=== PATIENT | female | born 1960 | race Caucasian/White ===

== ENCOUNTER 2017-04-24 20:39 | Observation (INO) | payer BC ==
[~2017-04-24] VITALS: Ht 167.6 cm; Wt 100.0 kg
[2017-04-24] MEDS ORDERED: ALUMINUM/MAGNESIUM SUSP 30 ML UDC PO STA (20:54)
[2017-04-24] MEDS ORDERED: ONDANSETRON INJ 2 MG/ML 2 ML VIAL IV STA (20:54)
[2017-04-24] MEDS ORDERED: SODIUM CHLORIDE 0.9% 1000ML 1,000 ML IV STA (20:54)
[2017-04-24] MEDS ORDERED: ASPIRIN 81 MG CHEW PO STA (21:02)
[2017-04-24 21:04] LABS: BASO % 0.6 %; BASO ABS # 0.04 K/uL (0-0.2); COMPLETE YES; EOS % 0.6 %; IG% 0.3 %; LYMPH % 18.7 %; LYMPH ABS # 1.35 K/uL (1.2-3.4); MEAN CELL VOLUME 82.4 fL (80-100); MEAN CORPUSCULAR HEMOGLOBIN 27.5 pg (25-34); MEAN CORPUSCULAR HGB CONC 33.3 g/dl (32-36); MEAN PLATELET VOLUME 10.7 fL (7.4-10.4); MONO % 4.9 %; NEUT % 74.9 %; PLATELET COUNT 333 K/uL (130-400); RED BLOOD COUNT 5.46 M/uL (4.2-5.4); WHITE BLOOD COUNT 7.21 K/uL (4.8-10.8)
--- NOTE | 2017-04-24 21:15 | EMERGENCY ROOM VISIT NOTE ---
History Report prepared by Alessiaibagustina: Elzbieta Jean Under the Supervision of: Dr. Cruz Aguilar D.O. First contact with patient: 20:46 Chief Complaint: CARDIAC ASSESSMENT Stated Complaint: FULLNESS IN CHEST AND VOMITTING History of Present Illness The patient is a 57 year old female who presents to the Emergency Room with complaints of intermittent chest discomfort for the past day. She reports "I feel like something is stuck in my middle" and rates her discomfort as an 8/10 in severity. This morning she woke up around 0500 and thought she had a migraine headache. She took 2 Excedrin, but states it provided no relief. She has also been nauseous and vomiting throughout the day. She denies any shortness of breath. She admits to a history of diverticulitis and states she is worried she might be having a flare due to some current abdominal pain. She did try taking a Zantac for her chest and abdominal pain, but states it provided minimal relief. The patient states she has never undergone a stress test or cardiac catheterization before. She no longer has her gallbladder but still has her appendix. Source of History: patient Onset: Past 1 day Position: chest Symptom Intensity: 8/10 Timing: intermittent Modifying Factors (Relieving): other (Xantac) Associated Symptoms: + headache, + nausea, + vomiting, + abdominal pain, No SOB Review of Systems See HPI for pertinent positives & negatives. A total of 10 systems reviewed and were otherwise negative. Past Medical & Surgical Medical Problems: (1) Diverticulitis (2) Diverticulosis Surgical Problems: (1) S/P cervical spinal fusion (2) S/P cholecystectomy Social History Smoking Status: Never Smoker Smokeless Tobacco Use: No Alcohol Use: occasionally Drug Use: none Marital Status: Housing Status: lives with family Occupation Status: employed Current/Historical Medications No Active Prescriptions or Reported Meds Allergies Coded Allergies: Oxycodone (Verified Adverse Reaction, Intermediate, "sick to stomach", 09/23) Physical Exam Vital Signs Date Time Temp Pulse Resp B/P (MAP) Pulse Ox O2 Delivery O2 Flow Rate FiO2 04/24/17 22:01 68 18 138/88 95 Room Air 04/24/17 21:09 71 04/24/17 20:51 97 Room Air 04/24/17 20:42 36.8 69 18 139/87 92 Room Air Physical Exam GENERAL: Patient is awake, alert, mildly anxious appearing, in no acute distress, patient is resting comfortably EYES: The conjunctivae are clear. The pupils are round and reactive. EARS, NOSE, MOUTH AND THROAT: The nose is without any evidence of any deformity. Mucous membranes are moist tongue is midline NECK: The neck is nontender and supple. RESPIRATORY: Normal respiratory effort is noted there is no evidence of wheezing rhonchi or rales CARDIOVASCULAR: Regular rate and rhythm noted there no murmurs rubs or gallops normal S1 normal S2 GASTROINTESTINAL: The abdomen is mildly distended but soft. Epigastric tenderness to palpation, no guarding or rigidity. MUSCULOSKELETAL/EXTREMITIES: There is no evidence of gross deformity full range of motion is noted in the hips and shoulders SKIN: There is no obvious evidence of any rash. There are no petechiae, pallor or cyanosis noted. NEUROLOGIC: Patient is awake alert and oriented x3 Medical Decision & Procedures ER Provider Diagnostic Interpretation: Radiology results as stated below per my review and radiologist interpretation: KUB CLINICAL HISTORY: ABDOMINAL PAIN/GI COMPARISON STUDY: No previous studies for comparison. FINDINGS: The soft tissues, psoas shadows, renal outlines and intestinal gas pattern appear normal. There is no evidence for bowel obstruction. Probable nonobstructing peripheral cortical calcification left kidney. IMPRESSION: Nonobstructive bowel pattern. Small nonobstructing peripheral cortical calcification left kidney. Electronically signed by: Valentin Greenwood M.D. 04/24/2017 9:38 PM CHEST 1 VW FRONT-NOT PORTABLE CLINICAL HISTORY: ABDOMINAL PAIN/GI nausea COMPARISON STUDY: No previous studies for comparison. FINDINGS: The bones soft tissues and hemidiaphragms are normal. The cardiomediastinal silhouette is normal. The lungs are clear. The pulmonary vasculature is normal. IMPRESSION: Negative chest. Electronically signed by: Valentin Greenwood M.D. 04/24/2017 9:37 PM Laboratory Results Test 04/24/17 20:52 Total Bilirubin 0.6 mg/dl (0.2-1) Direct Bilirubin 0.1 mg/dl (0-0.2) Aspartate Amino Transf (AST/SGOT) 32 U/L (15-37) Alanine Aminotransferase (ALT/SGPT) 64 U/L (12-78) Alkaline Phosphatase 68 U/L (45-117) Total Protein 7.6 gm/dl (6.4-8.2) Albumin 4.1 gm/dl (3.4-5.0) Lipase 115 U/L (73-393) Laboratory results per my review. Medications Administered Medications (Trade) Dose Ordered Sig/Sulaiman Route Start Time Stop Time Status Last Admin Dose Admin Al Hydroxide/Mg Hydroxide (Maalox Susp) 30 ml NOW STAT PO 04/24/17 20:54 04/24/17 20:55 DC 04/24/17 21:06 30 ML Sodium Chloride 1,000 ml @ 999 mls/hr Q1H1M STAT IV 04/24/17 20:54 04/24/17 21:54 DC 04/24/17 20:54 999 MLS/HR Ondansetron HCl (Zofran Inj) 4 mg NOW STAT IV 04/24/17 20:54 04/24/17 20:55 DC 04/24/17 21:06 4 MG Aspirin (Aspirin Chew) 324 mg NOW STAT PO 04/24/17 21:02 04/24/17 21:03 DC 04/24/17 21:06 324 MG Acetaminophen (Tylenol Tab) 650 mg STK-MED ONCE .ROUTE 04/24/17 23:08 04/24/17 23:09 DC 04/24/17 23:08 650 MG ECG Indication: chest pain Rate (beats per minute): 70 Rhythm: normal sinus (normal sinus rhythm) Findings: ST depression (Anterior, lateral), no ectopy, other (no PVC's) Comparison ECG Date: no prior available ED Course 2052: The patient was evaluated in room C9. A complete history and physical examination were performed. 2053: Zofran 4 mg IV, NSS 1000 ml @ 999 mls/hr IV, Maalox Susp 30 ml PO. 2101: Aspirin 324 mg PO. 2154: I reevaluated the patient. She is resting comfortably. I discussed my recommendation that she remain in the hospital for further evaluation and management and she verbalized complete understanding and agreement. 2209: I discussed the patients case with Dr. Hayward, [facility] Hospitalist. The patient will be further evaluated. Medical Decision Medication Reconciliation: I attest that I have personally reviewed the patient' s current medications list. Blood pressure screening: Patient was found to have a mildly elevated blood pressure and was referred to their primary doctor for recheck and further treatment. Prior records/ancillary studies reviewed. Triage Nursing notes reviewed. The patient's history was concerning for chest pain. Differential diagnosis: Etiologies such as cardiac ischemia, aortic dissection, pulmonary embolism, pneumonia, pneumothorax, musculoskeletal, infections, pericarditis, myocarditis , esophageal rupture, gastrointestinal, as well as others were entertained. The patient is a 57-year-old female who presented to the emergency department for an evaluation of epigastric discomfort as well as chest discomfort. The patient was found have an abnormal EKG. Her cardiac biomarkers. I discussed the patient's laboratory and radiographic studies with her. I also discussed the limitations of the emergency department workup for chest pain with her. She was treated with aspirin and Maalox in the emergency department. She's also given Zofran. On subsequent reevaluation she was feeling somewhat better. Because the patient's abnormal EKG I discussed her case with the on-call [facility] hospitalist. They have agreed to evaluate the patient in the emergency department for further management and disposition. Consults Time Called: 2204 Consulting Physician: Dr. Hayward [facility] Hospitalist Returned Call: 2209 I discussed the patients case with Dr. Hayward [facility] Hospitalist. The patient will be further evaluated. Impression Primary Impression: Epigastric abdominal pain Additional Impressions: Chest pain Abnormal EKG Nausea Vomiting Scribe Attestation The scribe's documentation has been prepared under my direction and personally reviewed by me in its entirety. I confirm that the note above accurately reflects all work, treatment, procedures, and medical decision making performed by me. Departure Information Dispostion Being Evaluated By Hospitalist Prescriptions No Active Prescriptions or Reported Meds Referrals No Doctor, Assigned (PCP) Patient Instructions My [facility] Health Problem Qualifiers Additional Impressions: Chest pain Chest pain type: unspecified Qualified Codes: R07.9 - Chest pain, unspecified Vomiting Vomiting type: unspecified Vomiting Intractability: non-intractable Nausea presence: with nausea Qualified Codes: R11.2 - Nausea with vomiting, unspecified
[2017-04-24 21:21] LABS: ALT/SGPT 64 U/L (12-78); BLOOD UREA NITROGEN 11 mg/dl (7-18); BUN/CREATININE RATIO 15.4 (10-20); CARBON DIOXIDE 22 mmol/L (21-32); CHLORIDE 107 mmol/L (98-107); CREATININE 0.71 mg/dl (0.60-1.20); GLUCOSE 117 mg/dl (70-99); PARTIAL THROMBOPLASTIN RATIO 0.9; POTASSIUM 3.6 mmol/L (3.5-5.1); PROTHROMBIN TIME (PATIENT) 10.7 SECONDS (9.0-12.0); SODIUM 142 mmol/L (136-145)
[2017-04-24 21:26] LABS: ALKALINE PHOSPHATASE 68 U/L (45-117); AST/SGOT 32 U/L (15-37)
--- NOTE | 2017-04-24 21:38 | DIAGNOSTIC IMAGING REPORT ---
CHEST 1 VW FRONT-NOT PORTABLE CLINICAL HISTORY: ABDOMINAL PAIN/GI nausea COMPARISON STUDY: No previous studies for comparison. FINDINGS: The bones soft tissues and hemidiaphragms are normal. The cardiomediastinal silhouette is normal. The lungs are clear. The pulmonary vasculature is normal. IMPRESSION: Negative chest. Electronically signed by: Valentin Greenwood M.D. 04/24/2017 9:37 PM Dictated Date/Time: 04/24/2017 9:37 PM
--- NOTE | 2017-04-24 21:39 | DIAGNOSTIC IMAGING REPORT ---
KUB CLINICAL HISTORY: ABDOMINAL PAIN/GI COMPARISON STUDY: No previous studies for comparison. FINDINGS: The soft tissues, psoas shadows, renal outlines and intestinal gas pattern appear normal. There is no evidence for bowel obstruction. Probable nonobstructing peripheral cortical calcification left kidney. IMPRESSION: Nonobstructive bowel pattern. Small nonobstructing peripheral cortical calcification left kidney. Electronically signed by: Valentin Greenwood M.D. 04/24/2017 9:38 PM Dictated Date/Time: 04/24/2017 9:37 PM
[2017-04-24 22:15] LABS: CALCIUM 8.9 mg/dl (8.5-10.1)
[2017-04-24] MEDS ORDERED: ACETAMINOPHEN 325 MG TAB ONE (23:08)
[2017-04-24] MEDS ORDERED: MoRPHine SULFATE 4 MG/ML 1 ML CARP\\VIAL IV PRN (23:15)
[2017-04-24] MEDS ORDERED: ONDANSETRON INJ 2 MG/ML 2 ML VIAL IV PRN (23:15)
[2017-04-24] MEDS ORDERED: NITROGLYCERIN 0.4 MG SL PER TAB CHARGE SL PRN (23:15)
[2017-04-24] MEDS ORDERED: ACETAMINOPHEN 325 MG TAB PO PRN (23:15)
[2017-04-24] MEDS ORDERED: MoRPHine SULFATE 2 MG/ML CARP IV PRN (23:15)
[2017-04-24] MEDS ORDERED: TRAMADOL HCL 50 MG TAB PO PRN (23:15)
[2017-04-24] MEDS ORDERED: ZOLPIDEM TARTRATE 5 MG TAB PO PRN (23:15)
[2017-04-24] MEDS ORDERED: IV FLUIDS COMPLETED PRN (23:45)
[2017-04-24 23:59] VITALS: BP 136/90; PULSE 57; TEMP 36.4; O2SAT 96; Ht 167.6 cm; Wt 100.0 kg
[2017-04-24] MEDS ORDERED: NSS + 20MEQ KCL 1000ML 1,000 ML IV SCH (23:59)
[2017-04-25] VITALS (10 sets, daily range): BP systolic 114–181; BP diastolic 70–108; PULSE 60–93; TEMP 36.4–36.8; O2SAT 90–96
[2017-04-25] MEDS: TRAMADOL HCL 50 MG TAB PO PRN ×2 (00:19→04:10)
[2017-04-25] MEDS: NITROGLYCERIN 2% OINTMENT 30GM TUBE EXT SCH ×2 (00:23→06:28)
[2017-04-25 00:28] LABS: URINE APPEARANCE CLEAR (CLEAR); URINE BILIRUBIN NEG (NEG); URINE COLOR YELLOW; URINE EPITHELIAL CELL AUTO 20-30 /lpf (0-5); URINE NITRITE NEG (NEG); URINE PH 6.5 (4.5-7.5); URINE SPECIFIC GRAVITY 1.017 (1.000-1.030); UROBILINOGEN NEG (NEG)
[2017-04-25 00:30] LABS: MANUAL MICROSCOPIC REQUIRED? NO; REVIEW REQ? NO
[2017-04-25 01:21] LABS: CKMB/CK RATIO 1.4 (0-3.0)
--- NOTE | 2017-04-25 03:33 | History and Physical ---
History & Physical Date & Time of Service: Apr 25, 2017 at 03:21. The patient was examined on 04/24/2017. Chief Complaint: Abnormal Ekg, Vomiting Primary Care Physician: No Doctor, Assigned History of Present Illness Source: patient, spouse The patient is a 57-year-old female who presents emergency department with intermittent chest discomfort and tightness, nausea and vomiting over the past day. She did take 2 Excedrin for an associated migraine headache that has resulted from the other symptoms. Her mother had a history of coronary artery disease in her 80s, and she has a half-sister has had an NV. She had no change in her usual activity pattern or her oral intake. She has not had any recent travels or sick exposures. She has not had symptoms such as this in the past. She has had a history of diverticulitis, but those symptoms were in the left lower quadrant. Past Medical/Surgical History Medical Problems: (1) Diverticulitis Status: Resolved (2) Diverticulosis Status: Chronic Surgical Problems: (1) S/P cervical spinal fusion Status: Resolved (2) S/P cholecystectomy Status: Resolved Social History Smoking Status: Never Smoker Smokeless Tobacco Use: No Drug Use: none Marital Status: Housing status: lives with family Occupational Status: employed Multi-Drug Resistant Organisms History of MDRO: No Allergies Coded Allergies: Oxycodone (Verified Adverse Reaction, Intermediate, "sick to stomach", 09/23) Home Medications No Active Prescriptions or Reported Meds Review of Systems The patient denies palpitations, shortness of breath, lower extremity swelling, sore throat, fevers, chills, sweats, weight change, fatigue, pelvic pain, blood in urine or stool, dysuria, urinary frequency or urgency, memory loss, rash, abnormal bruising or bleeding, imbalance, focal or generalized weakness, numbness or tingling in arms or legs, arthralgias or myalgias, back or neck pain , night sweats. The review of systems is otherwise negative other than for that already noted above, and at least 10 systems have been reviewed. Physical Exam Vital Signs Date Time Temp Pulse Resp B/P (MAP) Pulse Ox O2 Delivery O2 Flow Rate FiO2 04/24/17 23:59 Room Air 04/24/17 23:59 36.4 57 18 136/90 96 Room Air 04/24/17 23:25 65 18 136/82 95 Room Air 04/24/17 22:01 68 18 138/88 95 Room Air 04/24/17 21:09 71 04/24/17 20:51 97 Room Air 04/24/17 20:42 36.8 69 18 139/87 92 Room Air The patient is awake, well-developed and adequately nourished, alert and oriented 3, normocephalic and atraumatic, lying in bed and in no acute distress. HEENT--PERRL, EOMI, mucous membranes and oropharynx dry. Neck--supple, no JVD or bruits, thyroid normal, trachea midline, no adenopathy. Heart--normal S1 and S2, no extra beats, no murmurs, rubs or gallops. Lungs--clear bilaterally with good air movement, no respiratory distress, no accessory muscle use. Abdomen--normal bowel sounds and soft, nontender and nondistended, no hernias or masses, no organomegaly. Extremities--no cyanosis, clubbing or edema. There are good distal pulses b/l. Dermatologic--normal skin turgor, normal color, warm and dry, no abnormal lymph nodes, no rash. Neurologic--cranial nerves II through XII grossly intact, motor and sensory examination normal. Rheumatologic--normal range of motion, nontender, muscles and joints. Psychiatric--normal affect. Diagnostics Laboratory Results Results Past 24 Hours Test 04/24/17 20:52 04/24/17 23:59 04/25/17 00:25 Range/Units White Blood Count 7.21 4.8-10.8 K/uL Red Blood Count 5.46 4.2-5.4 M/uL Hemoglobin 15.0 12.0-16.0 g/dL Hematocrit 45.0 37-47 % Mean Corpuscular Volume 82.4 80-100 fL Mean Corpuscular Hemoglobin 27.5 25-34 pg Mean Corpuscular Hemoglobin Concent 33.3 32-36 g/dl Platelet Count 333 130-400 K/uL Mean Platelet Volume 10.7 7.4-10.4 fL Neutrophils (%) (Auto) 74.9 % Lymphocytes (%) (Auto) 18.7 % Monocytes (%) (Auto) 4.9 % Eosinophils (%) (Auto) 0.6 % Basophils (%) (Auto) 0.6 % Neutrophils # (Auto) 5.41 1.4-6.5 K/uL Lymphocytes # (Auto) 1.35 1.2-3.4 K/uL Monocytes # (Auto) 0.35 0.11-0.59 K/uL Eosinophils # (Auto) 0.04 0-0.5 K/uL Basophils # (Auto) 0.04 0-0.2 K/uL RDW Standard Deviation 39.3 36.4-46.3 fL RDW Coefficient of Variation 13.1 11.5-14.5 % Immature Granulocyte % (Auto) 0.3 % Immature Granulocyte # (Auto) 0.02 0.00-0.02 K/uL Prothrombin Time 10.7 9.0-12.0 SECONDS Prothromb Time International Ratio 1.0 0.9-1.1 Activated Partial Thromboplast Time 23.6 21.0-31.0 SECONDS Partial Thromboplastin Ratio 0.9 Sodium Level 142 136-145 mmol/L Potassium Level 3.6 3.5-5.1 mmol/L Chloride Level 107 98-107 mmol/L Carbon Dioxide Level 22 21-32 mmol/L Anion Gap 13.0 3-11 mmol/L Blood Urea Nitrogen 11 7-18 mg/dl Creatinine 0.71 0.60-1.20 mg/dl Est Creatinine Clear Calc Drug Dose 102.2 ml/min Estimated GFR () 111.1 Estimated GFR (Non- 95.9 BUN/Creatinine Ratio 15.4 10-20 Random Glucose 117 70-99 mg/dl Calcium Level 8.9 8.5-10.1 mg/dl Total Bilirubin 0.6 0.2-1 mg/dl Direct Bilirubin 0.1 0-0.2 mg/dl Aspartate Amino Transf (AST/SGOT) 32 15-37 U/L Alanine Aminotransferase (ALT/SGPT) 64 12-78 U/L Alkaline Phosphatase 68 45-117 U/L Total Creatine Kinase 77 66 26-192 U/L Creatine Kinase MB 0.8 0.9 0.5-3.6 ng/ml Creatine Kinase MB Ratio 1.0 1.4 0-3.0 Troponin I < 0.015 < 0.015 0-0.045 ng/ml Total Protein 7.6 6.4-8.2 gm/dl Albumin 4.1 3.4-5.0 gm/dl Lipase 115 73-393 U/L Urine Color YELLOW Urine Appearance CLEAR CLEAR Urine pH 6.5 4.5-7.5 Urine Specific [place] 1.017 1.000-1.030 Urine Protein NEG NEG Urine Glucose (UA) NEG NEG Urine Ketones 1+ NEG Urine Occult Blood NEG NEG Urine Nitrite NEG NEG Urine Bilirubin NEG NEG Urine Urobilinogen NEG NEG Urine Leukocyte Esterase SMALL NEG Urine WBC (Auto) 1-5 0-5 /hpf Urine RBC (Auto) 0-4 0-4 /hpf Urine Hyaline Casts (Auto) 0 0-5 /lpf Urine Epithelial Cells (Auto) 20-30 0-5 /lpf Urine Bacteria (Auto) NEG NEG Hepatitis C Antibody Screen NEG NEG Diagnostic Radiology Patient Name: RAFAEL ALDRIDGE Unit Number: [id number] Dictated: 04/24/172136 Transcribed: 04/24/172136 MS Printed Date/Time: [~ rep prt dt]/[~ rep prt tm] [~ rep ct labl] - [~ rep ct ivnm] [facility] Radiology Department [place] [id number] Dictated: 04/24/172136 Transcribed: 04/24/172136 MS Printed Date/Time: [~ rep prt dt]/[~ rep prt tm] [~ rep ct labl] - [~ rep ct ivnm] [~ rep ct add3]] KUB CLINICAL HISTORY: ABDOMINAL PAIN/GI COMPARISON STUDY: No previous studies for comparison. FINDINGS: The soft tissues, psoas shadows, renal outlines and intestinal gas pattern appear normal. There is no evidence for bowel obstruction. Probable nonobstructing peripheral cortical calcification left kidney. IMPRESSION: Nonobstructive bowel pattern. Small nonobstructing peripheral cortical calcification left kidney. Electronically signed by: Valentin Greenwood M.D. 04/24/2017 9:38 PM Dictated Date/Time: 04/24/2017 9:37 PM The status of this report is Signed. Draft = Not yet reviewed or approved by Radiologist. Signed = Reviewed and approved by Radiologist. <AttendingPhy></AttendingPhy> <FamilyPhy>No Doctor, Assigned</FamilyPhy> < PrimaryPhy>No Doctor, Assigned</PrimaryPhy> <UnitNumber>[id number]</UnitNumber> <VisitNumber>[id number]</VisitNumber> <PatientName>RAFAEL ALDRIDGE</ PatientName> <DateOfBirth>1960</DateOfBirth> <Location>[facility]</Location> < ServiceDate>04/24/17</ServiceDate> <MNE>ESINDI</MNE> <OrderingPhy>Cruz Aguilar D.O.</OrderingPhy> <OrderingPhyMNE>f rep ord dr trinidad</OrderingPhyMNE> <DictatingPhyMNE>f rep dict dr trinidad</DictatingPhyMNE> <CCListMNE>f rep ct mne</ CCListMNE> <AdmittingPhyMNE>f pt admit dr trinidad</AdmittingPhyMNE> <AttendingPhyMNE >f pt attend dr trinidad</AttendingPhyMNE> <ConsultingPhyMNE>f pt consult dr trinidad</ConsultingPhyMNE> <FamilyPhyMNE>f pt fam dr trinidad</FamilyPhyMNE> <OtherPhyMNE>f pt other dr trinidad</OtherPhyMNE> < PrimaryPhyMNE>f pt prim care dr trinidad</PrimaryPhyMNE> <ReferringPhyMNE>f pt referring dr trinidad</ReferringPhyMNE> Patient Name: RAFAEL ALDRIDGE Unit Number: [id number] Dictated: 04/24/172136 Transcribed: 04/24/172136 MS Printed Date/Time: [~ rep prt dt]/[~ rep prt tm] [~ rep ct labl] - [~ rep ct ivnm] [facility] [place] [address] Dictated: 04/24/172136 Transcribed: 04/24/172136 MS Printed Date/Time: [~ rep prt dt]/[~ rep prt tm] [~ rep ct labl] - [~ rep ct ivnm] [~ rep ct add3]] CHEST 1 VW FRONT-NOT PORTABLE CLINICAL HISTORY: ABDOMINAL PAIN/GI nausea COMPARISON STUDY: No previous studies for comparison. FINDINGS: The bones soft tissues and hemidiaphragms are normal. The cardiomediastinal silhouette is normal. The lungs are clear. The pulmonary vasculature is normal. IMPRESSION: Negative chest. Electronically signed by: Valentin Greenwood M.D. 04/24/2017 9:37 PM Dictated Date/Time: 04/24/2017 9:37 PM The status of this report is Signed. Draft = Not yet reviewed or approved by Radiologist. Signed = Reviewed and approved by Radiologist. <AttendingPhy></AttendingPhy> <FamilyPhy>No Doctor, Assigned</FamilyPhy> < PrimaryPhy>No Doctor, Assigned</PrimaryPhy> <UnitNumber>[id number]</UnitNumber> <VisitNumber>[id number]</VisitNumber> <PatientName>RAFAEL ALDRIDGE</ PatientName> <DateOfBirth>1960</DateOfBirth> <Location>[facility]</Location> < ServiceDate>04/24/17</ServiceDate> <MNE>ESINDI</MNE> <OrderingPhy>Cruz Aguilar D.O.</OrderingPhy> <OrderingPhyMNE>f rep ord dr trinidad</OrderingPhyMNE> <DictatingPhyMNE>f rep dict dr trinidad</DictatingPhyMNE> <CCListMNE>f rep ct vivi</ CCListMNE> <AdmittingPhyMNE>f pt admit dr trinidad</AdmittingPhyMNE> <AttendingPhyMNE >f pt attend dr trinidad</AttendingPhyMNE> <ConsultingPhyMNE>f pt consult dr trinidad</ConsultingPhyMNE> <FamilyPhyMNE>f pt fam dr trinidad</FamilyPhyMNE> <OtherPhyMNE>f pt other dr trinidad</OtherPhyMNE> < PrimaryPhyMNE>f pt prim care dr trinidad</PrimaryPhyMNE> <ReferringPhyMNE>f pt referring dr trinidad</ReferringPhyMNE> EKG EKG #1 shows normal sinus rhythm at 70 bpm, with acute ST-T changes in V2 through V6. EKG #2 shows normal sinus rhythm at 61 bpm, with acute ST-T changes in V2 through V4, and resolved in V5 and V6 Impression Assessment and Plan Abnormal EKG with nausea and vomiting--concerned about an anginal equivalent-- due to variable changes in EKG. She'll be admitted to the telemetry unit for serial cardiac enzymes, cardiac rhythm monitoring and a 2-D echocardiogram with Dopplers. The patient be placed on Nitropaste when his anterior chest wall every 6 hours, and aspirin 81 mg chewable every morning. Place on Zofran 4 mg IV every 6 hours when necessary, and NSS with KCl 20 mEq at 100 mils per hour, tramadol 50-100 mg by mouth every 4 hours when necessary, and morphine sulfate 2 -4 mg IV every 2 hours when necessary. Migraine headache--hydrate, address nausea and vomiting, and pain meds as above. Diverticulitis history--nonactive at this time. Level of Care Telemetry Advanced Directives Existing Advance Directive: No Existing Living Will: Yes Existing Power of Wire Cutter: No Resuscitation Status FULL RESUSCITATION VTE Prophylaxis VTE Risk Assessment Done? Y/N: Yes Risk Level: Low Given or contraindicated: SCD's Social Service Consult None Apply
[2017-04-25 07:18] LABS: BASO % 0.6 %; BASO ABS # 0.04 K/uL (0-0.2); COMPLETE YES; EOS % 1.3 %; HEMATOCRIT 39.1 % (37-47); IG% 0.1 %; LYMPH % 27.4 %; LYMPH ABS # 1.84 K/uL (1.2-3.4); MEAN CELL VOLUME 83.7 fL (80-100); MEAN CORPUSCULAR HEMOGLOBIN 27.8 pg (25-34); MEAN CORPUSCULAR HGB CONC 33.2 g/dl (32-36); MEAN PLATELET VOLUME 10.7 fL (7.4-10.4); NEUT % 59.6 %; PLATELET COUNT 284 K/uL (130-400); RED BLOOD COUNT 4.67 M/uL (4.2-5.4); WHITE BLOOD COUNT 6.71 K/uL (4.8-10.8)
[2017-04-25 07:23] LABS: PARTIAL THROMBOPLASTIN RATIO 0.9; PROTHROMBIN TIME (PATIENT) 11.2 SECONDS (9.0-12.0)
[2017-04-25 07:55] LABS: BLOOD UREA NITROGEN 10 mg/dl (7-18); BUN/CREATININE RATIO 13.7 (10-20); CALCIUM 8.2 mg/dl (8.5-10.1); CARBON DIOXIDE 25 mmol/L (21-32); CHLORIDE 111 mmol/L (98-107); CREATININE 0.72 mg/dl (0.60-1.20); GLUCOSE 95 mg/dl (70-99); MAGNESIUM 2.4 mg/dl (1.8-2.4); SODIUM 144 mmol/L (136-145)
[2017-04-25 08:00] LABS: CKMB/CK RATIO 1.2 (0-3.0)
[2017-04-25] MEDS ORDERED: ALUMINUM/MAGNESIUM SUSP 30 ML UDC PO STA (09:15)
--- NOTE | 2017-04-25 09:21 | Discharge Instructions ---
Discharge Instructions Date of Service Apr 25, 2017. Admission Reason for Admission: Abnormal Ekg, Vomiting Discharge Discharge Diagnosis / Problem: nausea/vomiting related to migraine and excedrin Discharge Goals Goal(s): Decrease discomfort, Diagnostic testing Activity Recommendations Activity Limitations: resume your previous activity . Instructions / Follow-Up Instructions / Follow-Up fortunately the nausea and vomiting appeared related to the migraine and possibly the excedrin just not sitting well, rather than anything more serious such as heart disease (your cardiac enzymes were negative over three sets despite symptoms lasting for hours and hours, which is basically diagnostic of not having a heart attack -- and since your symptoms also appeared much more stomach/gastrointestinal - this all fits with things being stomach related) -take it easy, eat small meals, bland foods, until you're feeling better -if you need to take anything for your headache for the rest of the day, tylenol will be easier on your stomach than excedrin or an anti-inflammatory -it would be OK to continue zantac 150mg up to twice a day as needed until you feel totally better as we discussed, while this current episode fortunately was not cardiac, it's always important to stay on top of risk factors (cholesterols, knowing what your blood pressure is doing, following sugar levels, etc) - and as we discussed while this episode did not at all appear cardiac, if you were to have more "classic" heart symptoms down the road (shortness of breath/new shortness of breath with exertion, unexplained fatigue, chest pressure) we'd want you to seek care right away your EKG is technically abnormal - but since your cardiac enzymes are negative, we suspect that this is just your baseline EKG. since the definition of "normal " EKG was made on men, unfortunately women more often have "false positive" EKGs. that is most likely what's going on with yours. we'll want you to give a copy of this EKG to your primary care doc so they have a reference on file for anytime you might be checked in the future. Current Hospital Diet Patient's current hospital diet: AHA Diet (Heart Healthy) Discharge Diet Recommended Diet: AHA Diet (Heart Healthy) Pending Studies Studies pending at discharge: no Medical Emergencies . Who to Call and When: Medical Emergencies: If at any time you feel your situation is an emergency, please call 911 immediately. . Non-Emergent Contact Non-Emergency issues call your: Primary Care Provider . . "Provider Documentation" section prepared by Clifford Guerrero. . VTE Core Measure Inpt VTE Proph given/why not?: SCD's
[2017-04-25] MEDS ORDERED: LIDOCAINE HCL 2% VISC SOLN 20 ML UDC PO ONE (09:30)
[2017-04-25] MEDS ORDERED: RANITIDINE HCL 150 MG TAB PO ONE (09:30)
[2017-04-25] MEDS ORDERED: ONDANSETRON INJ 2 MG/ML 2 ML VIAL IV ONE (11:41)
[2017-04-25] MEDS ORDERED: CALCIUM CARBONATE 500 MG CHEWABLE PO PRN (11:45)
[2017-04-25] MEDS ORDERED: ONDANSETRON INJ 8 MG in DEXTROSE 5% 50ML 50 ML IV PRN (12:00)
--- NOTE | 2017-04-25 15:05 | Progress Note ---
Subjective Date of Service: Apr 25, 2017. Subjective Pt evaluation today including: conversation w/ patient, physical exam, chart review, lab review, review of studies, review of inpatient medication list notes that she's here in town [place]. woke up yesterday w a migraine - this happens from time to time - took two excedrin but then starting having a lot of nausae - which she notes sometimes happens as well - this continued and progressed - and had epigastric and chest discomfort nonstop - and eventually as the day progressed she noted that she should come to get checked out. here becasue of EKG changes she became viewed as a "chest pain rule out" but all along notes symptoms were really almost entirely gastrointestinal with nausea and vomiting. headache still there but not as intense. no other complaints as the day progressed, unfortunately nausea/vomiting persisted - then came and noted that MANY people at the horse show are sick with a nausea/ vomiting illness Problem List Medical Problems: (1) Abnormal EKG Status: Acute (2) Chest pain Status: Acute (3) Diverticulosis Status: Chronic (4) Epigastric abdominal pain Status: Acute (5) Nausea Status: Acute (6) Right knee pain Status: Acute (7) Vomiting Status: Acute Review of Systems ROS otherwise negative except for as above Objective Vital Signs Date Time Temp Pulse Resp B/P (MAP) Pulse Ox O2 Delivery O2 Flow Rate FiO2 04/25/17 14:13 36.5 60 18 94 04/25/17 11:55 36.4 62 18 151/85 (107) 90 Room Air 04/25/17 11:44 Room Air 04/25/17 09:41 36.5 60 18 94 Room Air 04/25/17 08:00 Room Air 04/25/17 07:17 36.5 68 17 124/76 (92) 94 Room Air 04/25/17 04:25 36.4 65 18 114/70 (85) 96 Room Air 04/25/17 04:00 Room Air 04/24/17 23:59 Room Air 04/24/17 23:59 36.4 57 18 136/90 96 Room Air 04/24/17 23:25 65 18 136/82 95 Room Air 04/24/17 22:01 68 18 138/88 95 Room Air 04/24/17 21:09 71 04/24/17 20:51 97 Room Air 04/24/17 20:42 36.8 69 18 139/87 92 Room Air Physical Exam General Appearance: no apparent distress Eyes: EOMI ENT: hearing grossly normal Neck: trachea midline Respiratory/Chest: no respiratory distress, no accessory muscle use Neurologic/Psychiatric: 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, alert, normal mood/affect Skin: normal color Comments: ost/msk - L sided suboccipitals high tone/tender/decreased ROM - inhibitory pressure - improved, headache improved some, pt tolerated well Laboratory Results Last 24 Hours Test 04/24/17 20:52 04/24/17 23:59 04/25/17 00:25 04/25/17 06:59 White Blood Count 7.21 K/uL 6.71 K/uL Red Blood Count 5.46 M/uL 4.67 M/uL Hemoglobin 15.0 g/dL 13.0 g/dL Hematocrit 45.0 % 39.1 % Mean Corpuscular Volume 82.4 fL 83.7 fL Mean Corpuscular Hemoglobin 27.5 pg 27.8 pg Mean Corpuscular Hemoglobin Concent 33.3 g/dl 33.2 g/dl Platelet Count 333 K/uL 284 K/uL Mean Platelet Volume 10.7 fL 10.7 fL Neutrophils (%) (Auto) 74.9 % 59.6 % Lymphocytes (%) (Auto) 18.7 % 27.4 % Monocytes (%) (Auto) 4.9 % 11.0 % Eosinophils (%) (Auto) 0.6 % 1.3 % Basophils (%) (Auto) 0.6 % 0.6 % Neutrophils # (Auto) 5.41 K/uL 3.99 K/uL Lymphocytes # (Auto) 1.35 K/uL 1.84 K/uL Monocytes # (Auto) 0.35 K/uL 0.74 K/uL Eosinophils # (Auto) 0.04 K/uL 0.09 K/uL Basophils # (Auto) 0.04 K/uL 0.04 K/uL RDW Standard Deviation 39.3 fL 40.0 fL RDW Coefficient of Variation 13.1 % 13.3 % Immature Granulocyte % (Auto) 0.3 % 0.1 % Immature Granulocyte # (Auto) 0.02 K/uL 0.01 K/uL Prothrombin Time 10.7 SECONDS 11.2 SECONDS Prothromb Time International Ratio 1.0 1.0 Activated Partial Thromboplast Time 23.6 SECONDS 24.0 SECONDS Partial Thromboplastin Ratio 0.9 0.9 Sodium Level 142 mmol/L 144 mmol/L Potassium Level 3.6 mmol/L 4.0 mmol/L Chloride Level 107 mmol/L 111 mmol/L Carbon Dioxide Level 22 mmol/L 25 mmol/L Anion Gap 13.0 mmol/L 8.0 mmol/L Blood Urea Nitrogen 11 mg/dl 10 mg/dl Creatinine 0.71 mg/dl 0.72 mg/dl Est Creatinine Clear Calc Drug Dose 102.2 ml/min 101.5 ml/min Estimated GFR () 111.1 109.3 Estimated GFR (Non- 95.9 94.3 BUN/Creatinine Ratio 15.4 13.7 Random Glucose 117 mg/dl 95 mg/dl Calcium Level 8.9 mg/dl 8.2 mg/dl Total Bilirubin 0.6 mg/dl Direct Bilirubin 0.1 mg/dl Aspartate Amino Transf (AST/SGOT) 32 U/L Alanine Aminotransferase (ALT/SGPT) 64 U/L Alkaline Phosphatase 68 U/L Total Creatine Kinase 77 U/L 66 U/L 60 U/L Creatine Kinase MB 0.8 ng/ml 0.9 ng/ml 0.7 ng/ml Creatine Kinase MB Ratio 1.0 1.4 1.2 Troponin I < 0.015 ng/ml < 0.015 ng/ml < 0.015 ng/ml Total Protein 7.6 gm/dl Albumin 4.1 gm/dl Lipase 115 U/L Urine Color YELLOW Urine Appearance CLEAR Urine pH 6.5 Urine Specific Butner 1.017 Urine Protein NEG Urine Glucose (UA) NEG Urine Ketones 1+ Urine Occult Blood NEG Urine Nitrite NEG Urine Bilirubin NEG Urine Urobilinogen NEG Urine Leukocyte Esterase SMALL Urine WBC (Auto) 1-5 /hpf Urine RBC (Auto) 0-4 /hpf Urine Hyaline Casts (Auto) 0 /lpf Urine Epithelial Cells (Auto) 20-30 /lpf Urine Bacteria (Auto) NEG Hepatitis C Antibody Screen NEG Magnesium Level 2.4 mg/dl Assessment and Plan intractable nausea/vomiting -appearing infectious given the outbreak at the horse show -most likely viral - continue to follow, supportive care -IVF, zofran migraines -took excedrin, seems to have essentially resolved migraine portion, continue to follow tension headache/ somatic dysfunction cervical -OMT as above abnormal EKG -enzymes negative, symptoms very atypical for angina; suspect EKG is her baseline. DVT proph -ambulation stable for med surg
[2017-04-25] MEDS: SODIUM CHLOR 0.45% + 20MEQ KCL 1,000 ML IV SCH ×2 (16:40→22:42)
[2017-04-25] MEDS ORDERED: PROCHLORPERAZINE INJ 5 MG in SYRINGE 4 ML IV PRN (17:00)
[2017-04-25] MEDS ORDERED: PROCHLORPERAZINE INJ 5 MG in SYRINGE 4 ML IV ONE (17:15)
[2017-04-25] MEDS ORDERED: ONDANSETRON INJ 2 MG/ML 2 ML VIAL IV PRN (17:15)
[2017-04-26] MEDS: SODIUM CHLOR 0.45% + 20MEQ KCL 1,000 ML IV SCH ×2 (05:34→11:08)
[2017-04-26 06:27] LABS: BASO % 0.4 %; BASO ABS # 0.03 K/uL (0-0.2); COMPLETE YES; EOS % 1.5 %; HEMATOCRIT 40.1 % (37-47); IG% 0.4 %; LYMPH % 32.5 %; LYMPH ABS # 2.17 K/uL (1.2-3.4); MEAN CELL VOLUME 84.8 fL (80-100); MEAN CORPUSCULAR HEMOGLOBIN 28.1 pg (25-34); MEAN CORPUSCULAR HGB CONC 33.2 g/dl (32-36); MEAN PLATELET VOLUME 10.7 fL (7.4-10.4); MONO % 8.5 %; NEUT % 56.7 %; PLATELET COUNT 265 K/uL (130-400); RED BLOOD COUNT 4.73 M/uL (4.2-5.4); WHITE BLOOD COUNT 6.67 K/uL (4.8-10.8)
[2017-04-26 07:09] LABS: BUN/CREATININE RATIO 13.3 (10-20); CALCIUM 8.1 mg/dl (8.5-10.1); CREATININE 0.69 mg/dl (0.60-1.20); MAGNESIUM 2.5 mg/dl (1.8-2.4); POTASSIUM 4.1 mmol/L (3.5-5.1)
[2017-04-26 07:10] VITALS: BP 121/75; PULSE 60; TEMP 36.8; O2SAT 93
[2017-04-26 08:00] VITALS: O2SAT 93
[2017-04-26] MEDS ORDERED: ONDA8TAB62 SL (08:24)
--- NOTE | 2017-04-26 08:25 | Discharge Instructions ---
Discharge Instructions Date of Service Apr 26, 2017. Admission Reason for Admission: Abnormal Ekg, Vomiting Discharge Discharge Diagnosis / Problem: Nausea / vomiting Discharge Goals Goal(s): Improve disease control Activity Recommendations Activity Limitations: resume your previous activity Exercise/Sports Limitations: none May Resume Sexual Activity: when tolerated Shower/Bathe: no limitations Driving or Machine Use: no limitations . Instructions / Follow-Up Instructions / Follow-Up Take Zofran (which dissolves under the tongue) whenever you feel nauseated. If you notice any further chest pain, shortness of breath, worsening abdominal pain, or other concerning symptoms, please seek medical attention. Current Hospital Diet Patient's current hospital diet: AHA Diet (Heart Healthy) Discharge Diet Recommended Diet: AHA Diet (Heart Healthy) Pending Studies Studies pending at discharge: no Medical Emergencies . Who to Call and When: Medical Emergencies: If at any time you feel your situation is an emergency, please call 911 immediately. . Non-Emergent Contact Non-Emergency issues call your: Primary Care Provider . . "Provider Documentation" section prepared by Nicky Luong. . VTE Core Measure Inpt VTE Proph given/why not?: SCD's
--- NOTE | 2017-04-26 08:25 | Discharge Summary ---
Discharge Summary Date of Service Apr 26, 2017. (Nicky Luong MD) Discharge Summary Admission Date: Apr 24, 2017 at 23:09 Discharge Date: Apr 26, 2017 Discharge Disposition: Home Principal Diagnosis: Nausea/vomiting Problems/Secondary Diagnoses: (1) Diverticulosis Status: Chronic (Nicky Luong MD) Medication Reconciliation New Medications: Ondansetron Odt (Zofran Odt) 8 Mg Soltab 8 MG SL Q6H PRN for Nausea for 7 Days, #20 TAB Discharge Exam Review of Systems: Constitutional: No fever, No chills, No sweats, No weight loss, No weakness Eyes: No worsening of vision ENT: No hearing loss Respiratory: No cough, No sputum, No wheezing Cardiovascular: No chest pain Abdomen: No pain, No nausea, No vomiting Musculoskeletal: No joint pain Genitourinary - Female: No dysuria, No urinary frequency, No hematuria Neurologic: No memory loss, No paralysis, No weakness Psychiatric: No depression symptoms, No anhedonism Endocrine: No fatigue Hematologic / Lymphatic: No abnormal bleeding/bruising Integumentary: No rash Physical Exam: General Appearance: WD/WN, no apparent distress Eyes: normal inspection, PERRL ENT: hearing grossly normal Neck: supple, no JVD Respiratory/Chest: lungs clear, normal breath sounds, no respiratory distress Cardiovascular: regular rate, rhythm, no murmur, normal peripheral pulses Abdomen / GI: normal bowel sounds, non tender, soft Extremities: no calf tenderness, no pedal edema Neurologic/Psychiatric: alert, normal mood/affect, normal reflexes Skin: normal color, no rash (Nicky Luong MD) Hospital Course HPI: The patient is a 57-year-old female who presents emergency department with intermittent chest discomfort and tightness, nausea and vomiting over the past day. She did take 2 Excedrin for an associated migraine headache that has resulted from the other symptoms. Her mother had a history of coronary artery disease in her 80s, and she has a half-sister has had an HI. She had no change in her usual activity pattern or her oral intake. She has not had any recent travels or sick exposures. She has not had symptoms such as this in the past. She has had a history of diverticulitis, but those symptoms were in the left lower quadrant. HOSPITAL COURSE: Intractable nausea and vomiting Resolved by day of discharge with Zofran / Compazine / Phenergan Was likely infectious as there was an outbreak at the horse show she attended Received IVF Was able to tolerate full breakfast by dc Migraines Continue to monitor, resolved by dc Abnormal EKG Enzymes trended and were negative Continue to monitor as outpatient VTE: Ambulated well Dispo: DC on 04/26/17 Code status: Full Total Time Spent: Greater than 30 minutes This includes examination of the patient, discharge planning, medication reconciliation, and communication with other providers. (Nicky Luong MD) Resident Physician Supervision Note: I was present with Dr. Luong during the history and exam. I discussed the case with the resident and agree with the findings and plan as documented in the note. Any exceptions or clarifications are listed here: The patient reports eating a regular breakfast without nausea or vomiting. She has learned of additional people at the same horse show with similar symptoms, suggesting a viral illness. She is agreeable to discharge today with follow up in her home area. Documented By: Bear Briceno Total Time Spent: Less than 30 minutes (Bear Briceno.,D.O.) Discharge Instructions Please refer to the electronic Patient Visit Report (Discharge Instructions) for additional information. (Nicky Luong MD) Follow-Up With PCP within 1 week (Nicky Luong MD) Resident Tracking Resident Involvement: Resident Care Provided Care Provided: Adult Hospital Medicine (Nicky Luong MD)
== END 2017-04-26 13:15 | disposition home or self-care (01) ==
LOC: C.EDB 20:40 → C.2T 23:09 → ENRESERV 23:20 → C.MS4W 04-25 16:29
PROVIDERS: ADMIT Hospitalist; ATTEND Family Medicine
DX: R11.2 Nausea with vomiting, unspecified (principal); K57.90 Diverticulosis of intestine, part unspecified, without perforation or abscess without bleeding; Z82.49 Family history of ischemic heart disease and other diseases of the circulatory system; Z90.49 Acquired absence of other specified parts of digestive tract; Z98.890 Other specified postprocedural states; Z88.5 Allergy status to narcotic agent